=== PATIENT | female | born 1960 | race Two or more races ===

== ENCOUNTER 2021-11-01 04:39 | Day surgery (SDC) | payer OTHER ==
[2021-10-31 09:42] VITALS: BMI 21.6
[2021-11-01 11:54] VITALS: TEMP 97.5
[2021-11-01 12:16] VITALS: BP 113/66; PULSE 55
== END 2021-11-01 12:12 | disposition home or self-care (01) ==
LOC: JASU-ENDO 04:39
PROVIDERS: ATTEND Internal Medicine Gastroenterology
PROC: 0DB78ZX Excision of Stomach, Pylorus, Via Natural or Artificial Opening Endoscopic, Diagnostic (ICD-10-PCS; 2021-11-01)
PROC: 0DJD8ZZ Inspection of Lower Intestinal Tract, Via Natural or Artificial Opening Endoscopic (ICD-10-PCS; principal; 2021-11-01 11:45)
DX: Z12.11 Encounter for screening for malignant neoplasm of colon (principal); K29.50 Unspecified chronic gastritis without bleeding; B96.81 Helicobacter pylori [H. pylori] as the cause of diseases classified elsewhere; F10.10 Alcohol abuse, uncomplicated; Z72.0 Tobacco use; F31.9 Bipolar disorder, unspecified
CPT/HCPCS: 43239; G0104; 88305-TC; 88342-TC

== ENCOUNTER 2022-02-04 10:16 | Emergency (ER) | payer OTHER ==
[2022-02-04 10:41] VITALS: BP 109/66; PULSE 67; TEMP 98.2
[2022-02-04] MEDS ORDERED: ACETAMINOPHEN 325 MG TABLET (FP) PO ONE (11:17)
[2022-02-04] MEDS ORDERED: METOCLOPRAMIDE HCL INJECTION 10 MG/2 ML VIAL IM ONE (11:20)
[2022-02-04] MEDS ORDERED: METOCLOPRAMIDE HCL INJECTION 10 MG/2 ML VIAL ONE (11:25)
[2022-02-04] MEDS ORDERED: ACETAMINOPHEN 325 MG TABLET (FP) ONE (11:25)
== END 2022-02-04 15:00 | disposition home or self-care (01) ==
LOC: JER 10:16
PROC: 3E023GC Introduction of Other Therapeutic Substance into Muscle, Percutaneous Approach (ICD-10-PCS; principal; 2022-02-04)
DX: S22.42XA Multiple fractures of ribs, left side, initial encounter for closed fracture (principal); S01.112A Laceration without foreign body of left eyelid and periocular area, initial encounter; S62.102A Fracture of unspecified carpal bone, left wrist, initial encounter for closed fracture; W01.198A Fall on same level from slipping, tripping and stumbling with subsequent striking against other object, initial encounter
CPT/HCPCS: 70450-TC; 70486-TC; 71046-TC-FY; 71101-TC-LT-FY; 72125-TC; 73030-TC-LT-FY; 73110-TC-LT-FY; 73130-TC-LT-FY; 99285-25

== ENCOUNTER 2024-03-30 12:01 | Emergency (ER) | payer OTHER ==
[2024-03-30 12:09] VITALS: TEMP 98; BMI 22.6
[2024-03-30 13:47] LABS: BASO % 0.7 % (0-2.0); EOS % 3.3 % (0-4.5); HEMATOCRIT 38.2 % (32.4-45.2); LYMPH % 37.4 % (8-40); MCH 34.8 pg (25.7-33.7); MCHC 34.1 g/dl (32.0-36.0); MEAN CELL VOLUME 102.1 fl (80-96); MEAN PLT VOLUME 7.2 fl (7.5-11.1); MONO % 11.5 % (3.8-10.2); NEUT % 47.1 % (42.8-82.8); PLATELET COUNT 222 10^3/uL (134-434); RBC 3.74 M/mm3 (3.60-5.2); RDW 16.2 % (11.6-15.6); WHITE BLOOD COUNT 4.7 K/mm3 (4.0-10.0)
[2024-03-30 14:05] LABS: POTASSIUM 4.7 mmol/L (3.5-5.1)
[2024-03-30 14:07] LABS: BLOOD UREA NITROGEN 5.3 mg/dL (7-18); CALCIUM 9.1 mg/dL (8.5-10.1)
[2024-03-30 14:08] LABS: ALBUMIN 3.4 g/dl (3.4-5.0)
[2024-03-30 14:11] LABS: CREATININE 0.5 mg/dL (0.55-1.3)
[2024-03-30 14:13] LABS: BILIRUBIN,TOTAL 0.9 mg/dL (0.2-1); TOT PROT 8.1 g/dl (6.4-8.2)
[2024-03-30] MEDS: BACITRACIN ZINC 15 GM TUBE TOPICAL OINTMENT TP ONE (16:40)
[2024-03-30 16:43] VITALS: BP 132/63; PULSE 62; RESP 18
== END 2024-03-30 17:23 | disposition home or self-care (01) ==
LOC: JER 12:01
DX: S90.811A Abrasion, right foot, initial encounter (principal); B87.9 Myiasis, unspecified; L29.9 Pruritus, unspecified; R21 Rash and other nonspecific skin eruption; X58.XXXA Exposure to other specified factors, initial encounter
CPT/HCPCS: 36415; 73660-TC-FY; 80053; 85025; 99284-25